=== PATIENT | male | born 2000 | race Two or more races ===

== ENCOUNTER 2021-12-23 08:33 | Outpatient (CLI) | payer OTHER ==
[~2021-12-23] VITALS: Ht 172.7 cm; Wt 88.5 kg
== END 2021-12-23 08:48 | disposition home or self-care (01) ==
LOC: LAB 08:33
PROVIDERS: ATTEND Orthopaedic Surgery
DX: Z76.89 Persons encountering health services in other specified circumstances (principal); D64.9 Anemia, unspecified; E88.9 Metabolic disorder, unspecified; D68.8 Other specified coagulation defects; N39.0 Urinary tract infection, site not specified; A49.02 Methicillin resistant Staphylococcus aureus infection, unspecified site; E11.9 Type 2 diabetes mellitus without complications; I49.9 Cardiac arrhythmia, unspecified; I10 Essential (primary) hypertension

== ENCOUNTER 2022-01-11 06:05 | Day surgery (SDC) | payer OTHER | END 2022-01-11 16:04 | disposition home or self-care (01) | LOC: CIR.AMB 06:05 | PROVIDERS: ATTEND Orthopaedic Surgery | DX: S83.511A Sprain of anterior cruciate ligament of right knee, initial encounter (principal); M22.11 Recurrent subluxation of patella, right knee; M66.88 Spontaneous rupture of other tendons, other sites; Z86.16 Personal history of COVID-19 ==

== ENCOUNTER 2024-02-05 13:59 | Emergency (ER) | payer OTHER ==
[~2024-02-05] VITALS: Ht 172.7 cm; Wt 86.2 kg
[2024-02-05] MEDS ORDERED: TETANUS & DIPHTHERIA TOX,ADULT 0.5 ML VIAL IM ONE (16:00)
[2024-02-05] MEDS ORDERED: LIDOCAINE HCL 1% 10ML VIAL PERCUT ONE (16:00)
[2024-02-05] MEDS ORDERED: TETANUS DIPHTHERIA TOX. ADSOR 5 ML VIAL IM ONE (16:16)
[2024-02-05] MEDS ORDERED: CEFTRIAXONE SODIUM 1,000 MG VIAL IM ONE (17:00)
[2024-02-05] MEDS ORDERED: CIPRO500 MG PO (17:01)
[2024-02-05] MEDS ORDERED: CEFTRIAXONE SODIUM 1,000 MG VIAL ONE (17:08)
== END 2024-02-05 17:12 ==
LOC: ER 14:00
DX: S91.111A Laceration without foreign body of right great toe without damage to nail, initial encounter (principal); S91.114A Laceration without foreign body of right lesser toe(s) without damage to nail, initial encounter; W26.8XXA Contact with other sharp object(s), not elsewhere classified, initial encounter; Y93.89 Activity, other specified; Y92.832 Beach as the place of occurrence of the external cause; Y99.9 Unspecified external cause status

== ENCOUNTER 2024-05-18 22:43 | Emergency (ER) | payer OTHER ==
[~2024-05-18] VITALS: Ht 172.7 cm; Wt 88.5 kg
[~2024-05-18 22:43] MED LIST: CIPRO500 MG PO
[2024-05-19] MEDS ORDERED: CEFAZOLIN SODIUM 1,000 MG VIAL IM STA (01:44)
== END 2024-05-19 02:45 | disposition home or self-care (01) ==
LOC: ER 22:45
DX: S01.81XA Laceration without foreign body of other part of head, initial encounter (principal); X58.XXXA Exposure to other specified factors, initial encounter; Y93.79 Activity, other specified sports and athletics; Y92.89 Other specified places as the place of occurrence of the external cause; Y99.8 Other external cause status